=== PATIENT | male | born 1950 | race Caucasian/White ===

== ENCOUNTER 2018-07-11 07:15 | Inpatient (IN) | payer OTHER ==
[~2018-07-11] VITALS: Ht 167.6 cm; Wt 105.2 kg
[~2018-07-11 07:15] MED LIST: ACETAMINOPHEN-1 EAC2 PO; AMOX1TAB12 PO; ATENOLOL25 MG PO; CLONAZEPAM0.5 MG PO; CLONAZEPAM1 MG PO; COLACE100 MG PO; COZAAR25 MG PO; DOCUSATE SODIU100 MG PO; GLIPIZIDE2.5 MG/BO1 PO; GLUMETZA1000 MG PO; LOSARTAN-HCTZ1 EAC1 PO; METHYLPRED4 MG/DOSE- PO; NEURONTIN PO; NEURONTIN300 MG PO; NEURONTIN800 MG PO; NITROFURANTOIN50 MG PO; NOVOLIN 70/30 110 ML SQ; PERCOCET 5/3251 TAB PO; TENORMIN50 M1 PO
[2018-07-11] MEDS ORDERED: LOSARTAN-HCTZ1 EAC1 PO (09:36)
[2018-07-11] MEDS ORDERED: GLIPIZIDE10 MG PO (09:36)
[2018-07-11] MEDS ORDERED: CORRECTOL5 MG PO (09:37)
[2018-07-11] MEDS ORDERED: METOPROLOL ER-1 EAC2 PO (09:37)
[2018-07-11] MEDS ORDERED: FIBER500 MG PO (09:38)
[2018-07-11] MEDS ORDERED: COLAGENO PO (09:38)
[2018-07-11] MEDS ORDERED: TRAMADOL HCL50 MG PO (09:39)
[2018-07-11] MEDS ORDERED: OMEPRAZOLE40 MG PO (09:39)
[2018-07-11] MEDS ORDERED: [UNRECOGNIZED DRUG - OTHER] PO (09:40)
[2018-07-19] MEDS ORDERED: TYLENOL-CODEINE1 TA1 PO (14:05)
== END 2018-07-20 14:43 | disposition home or self-care (01) | DRG 714 ==
LOC: SURH 07-18 07:15 → O/R 07-18 07:48 → SURH 07-18 09:00
PROVIDERS: Urology
PROC: 0VT08ZZ Resection of Prostate, Via Natural or Artificial Opening Endoscopic (ICD-10-PCS; principal; 2018-07-18 09:00)
DX: C61 Malignant neoplasm of prostate (principal); N40.1 Benign prostatic hyperplasia with lower urinary tract symptoms; R33.8 Other retention of urine

== ENCOUNTER 2018-08-31 16:39 | Outpatient (CLI) | payer OTHER ==
[~2018-08-31 16:39] MED LIST changes: +COLAGENO PO; +CORRECTOL5 MG PO; +FIBER500 MG PO; +GLIPIZIDE10 MG PO; +METOPROLOL ER-1 EAC2 PO; +OMEPRAZOLE40 MG PO; +TRAMADOL HCL50 MG PO; +TYLENOL-CODEINE1 TA1 PO; +[UNRECOGNIZED DRUG - OTHER] PO
== END 2018-08-31 16:56 | disposition home or self-care (01) ==
LOC: LAB 16:39
DX: N30.00 Acute cystitis without hematuria (principal); B96.29 Other Escherichia coli [E. coli] as the cause of diseases classified elsewhere; B96.89 Other specified bacterial agents as the cause of diseases classified elsewhere

== ENCOUNTER 2018-12-21 16:29 | Outpatient (CLI) | payer OTHER | END 2018-12-21 16:36 | disposition home or self-care (01) | LOC: LAB 16:29 | DX: R97.20 Elevated prostate specific antigen [PSA] (principal) ==

== ENCOUNTER 2019-01-04 07:18 | Outpatient (CLI) | payer OTHER | END 2019-01-04 07:25 | disposition home or self-care (01) | LOC: SONOGRAMA 07:18 | DX: D29.1 Benign neoplasm of prostate (principal); R97.20 Elevated prostate specific antigen [PSA] ==

== ENCOUNTER 2019-01-06 23:25 | Inpatient (IN) | payer OTHER ==
[~2019-01-06] VITALS: Ht 167.6 cm; Wt 107.0 kg
== END 2019-01-11 19:11 | disposition home or self-care (01) | DRG 728 ==
LOC: ER 23:25 → SURG 01-07 07:01
PROVIDERS: ADMIT Urology
DX: N41.0 Acute prostatitis (principal); N30.00 Acute cystitis without hematuria; R33.8 Other retention of urine

== ENCOUNTER 2019-06-14 13:16 | Outpatient (CLI) | payer OTHER | END 2019-06-14 13:20 | disposition home or self-care (01) | LOC: LAB 13:16 | DX: R97.20 Elevated prostate specific antigen [PSA] (principal) ==

== ENCOUNTER 2024-02-21 08:36 | Inpatient (IN) | payer OTHER ==
[~2024-02-21] VITALS: Ht 167.6 cm; Wt 105.2 kg
[2024-02-21] MEDS ORDERED: BACTRIM DS TAB1 EACH (09:08)
[2024-02-29] MEDS ORDERED: PERCOCET 5-3251 EACH PO (09:14)
[2024-02-29] MEDS ORDERED: 0.9 % SODIUM CHLORIDE 1,000 ML IV SCH (09:15)
[2024-02-29] MEDS ORDERED: ENALAPRILAT DIHYDRATE 1.25 MG/ML VIAL IV PRN (09:15)
[2024-02-29] MEDS ORDERED: COLACE100 MG PO (09:15)
[2024-02-29] MEDS ORDERED: MEDROLPACK PO (09:15)
[2024-02-29] MEDS ORDERED: GABAPENTIN100 M2 PO (09:15)
[2024-02-29] MEDS ORDERED: PROMETHAZINE HCL 50 MG/ML AMPUL IM PRN (09:15)
[2024-02-29] MEDS ORDERED: BACTRIM DS TAB1 EACH PO (09:15)
[2024-02-29] MEDS ORDERED: NEURONTIN800 MG PO (09:16)
[2024-02-29] MEDS ORDERED: CEFAZOLIN SODIUM 1,000 MG VIAL ONE ×3 (09:40→23:27)
[2024-02-29] MEDS ORDERED: METHYLPREDNISOLONE ACETATE 80 MG/ML VIAL ONE (09:44)
[2024-02-29] MEDS ORDERED: TRANEXAMIC ACID 100MG/1ML (1000MG) AMPUL IV ONE ×3 (10:37→10:45)
[2024-02-29] MEDS ORDERED: METHYLPREDNISOLONE SOD SUCC 125 MG in DEXTROSE 5 % IN WATER 100 ML IV ONE (10:45)
[2024-02-29] MEDS ORDERED: METHYLPREDNISOLONE SOD SUCC 125 MG VIAL IV ONE (10:45)
[2024-02-29] MEDS ORDERED: VANCOMYCIN HCL 1,000 MG VIAL IR ONE (10:45)
[2024-02-29] MEDS ORDERED: CEFAZOLIN SODIUM 1,000 MG VIAL IV ONE (10:45)
[2024-02-29] MEDS ORDERED: METHYLPREDNISOLONE ACETATE 80 MG/ML VIAL IJ ONE ×2 (10:45)
[2024-02-29] MEDS ORDERED: VANCOMYCIN HCL 1,000 MG VIAL IV ONE (10:45)
[2024-02-29] MEDS ORDERED: MORPHINE SULFATE 4 MG/ML CARTRIDGE IV SCH (13:00)
[2024-02-29] MEDS ORDERED: DOCUSATE SODIUM 100MG CAP PO SCH (13:00)
[2024-02-29] MEDS ORDERED: ENALAPRILAT DIHYDRATE 1.25 MG/ML VIAL IV ONE ×2 (15:07→16:09)
[2024-02-29] MEDS ORDERED: CEFAZOLIN SODIUM 1,000 MG in 0.9 % SODIUM CHLORIDE 50 ML IV SCH (17:00)
[2024-02-29] MEDS ORDERED: FAMOtidine 20 MG TABLET PO SCH (17:00)
[2024-02-29] MEDS ORDERED: METHYLPREDNISOLONE SOD SUCC 125 MG VIAL IV SCH (17:00)
[2024-02-29] MEDS ORDERED: CIPROFLOXACIN IN 5 % DEXTROSE 200 ML IV SCH (17:00)
[2024-02-29] MEDS ORDERED: ONDANSETRON HCL 2 MG/ML VIAL ONE (17:40)
[2024-02-29] MEDS ORDERED: VANCOMYCIN HCL 1,000 MG in 0.9 % SODIUM CHLORIDE 250 ML IV SCH (21:00)
[2024-02-29] MEDS ORDERED: GABAPENTIN 800 MG TABLET PO SCH (21:00)
[2024-03-01] MEDS ORDERED: SODIUM CHLORIDE 0.45 % 1,000 ML IV SCH
[2024-03-01] MEDS ORDERED: OxyCODONE HCL/APAP UD (PERCOCET) PO PRN (06:01)
[2024-03-01 06:25] LABS: HEMATOCRIT 40.2 % (39.0-48.0); HEMOGLOBIN 13.7 g/dL (13-16.00); MEAN CELL VOLUME 86.1 fL (80.0-100.00); MEAN CORPUSCULAR HEMOGLOBIN 29.4 pg (27.00-32.0); MEAN CORPUSCULAR HGB CONC 34.1 g/dl (32.0-36.0); PLATELET COUNT 234 K/uL (150-450); RED BLOOD COUNT 4.67 M/uL (4.00-6.00); RED CELL DISTRIBUTION WIDTH 14.3 % (11.5-14.5)
[2024-03-01 06:55] LABS: CALCIUM 8.7 mg/dL (8.5-10.1); CREATININE SERUM 0.97 mg/dL (0.70-1.30); GFR 76.08; POTASSIUM 4.75 mEq/L (3.5-5.1)
[2024-03-01] MEDS ORDERED: CEFAZOLIN SODIUM 1,000 MG VIAL ONE (08:09)
[2024-03-01] MEDS ORDERED: LOSARTAN POTASSIUM 50 MG TABLET PO SCH (09:00)
[2024-03-01] MEDS ORDERED: TAMSULOSIN HCL 0.4 MG CAP PO SCH (09:00)
[2024-03-01] MEDS ORDERED: ENOXAPARIN SODIUM 40 MG/0.4 ML SYRINGE SUBCUTANEO SCH (09:00)
[2024-03-01] MEDS ORDERED: INSULIN NPH HUM/REG INSULIN HM 1,000 UNIT/10 ML UNITS SUBCUTANEO STA (16:57)
[2024-03-01] MEDS ORDERED: INSULIN NPH HUM/REG INSULIN HM 1,000 UNIT/10 ML UNITS SUBCUTANEO SCH (17:00)
[2024-03-01] MEDS ORDERED: DEXTROSE 50 % IN WATER 0.5 G/ML DISP.SYRIN IV PRN (17:00)
[2024-03-01] MEDS ORDERED: INSULIN LISPRO 1,000 UNIT/10 ML UNITS SUBCUTANEO PRN (17:00)
[2024-03-01] MEDS ORDERED: 0.9 % SODIUM CHLORIDE 1,000 ML IV SCH (18:30)
[2024-03-02] MEDS ORDERED: CIPROFLOXACIN HCL 500 MG TABLET PO SCH (09:00)
== END 2024-03-02 15:29 | disposition designated cancer center or children's hospital (05) | DRG 455 ==
LOC: O/R 02-29 05:25 → SURH 02-29 10:15 → PED 02-29 14:57
PROVIDERS: ADMIT Orthopaedic Surgery Orthopaedic Surgery of the Spine; ATTEND Orthopaedic Surgery Orthopaedic Surgery of the Spine
PROC: 0SG0071 Fusion of Lumbar Vertebral Joint with Autologous Tissue Substitute, Posterior Approach, Posterior Column, Open Approach (ICD-10-PCS; 2024-02-29)
PROC: 0ST20ZZ Resection of Lumbar Vertebral Disc, Open Approach (ICD-10-PCS; 2024-02-29)
PROC: 0QB30ZZ Excision of Left Pelvic Bone, Open Approach (ICD-10-PCS; 2024-02-29)
PROC: 07DR0ZZ Extraction of Iliac Bone Marrow, Open Approach (ICD-10-PCS; 2024-02-29)
PROC: 0SG00A0 Fusion of Lumbar Vertebral Joint with Interbody Fusion Device, Anterior Approach, Anterior Column, Open Approach (ICD-10-PCS; principal; 2024-02-29 10:15)
DX: M48.062 Spinal stenosis, lumbar region with neurogenic claudication (principal); M41.56 Other secondary scoliosis, lumbar region; M47.816 Spondylosis without myelopathy or radiculopathy, lumbar region; M51.36 Other intervertebral disc degeneration, lumbar region; E11.9 Type 2 diabetes mellitus without complications; I10 Essential (primary) hypertension